=== PATIENT | female | born 1955 | race Asian ===

== ENCOUNTER 2024-03-09 19:10 | Emergency (ER) | payer OTHER, SELFPAY ==
[2024-03-09 19:12] VITALS: BP 159/88
[2024-03-09 19:38] LABS: % Basophils 1.1 % (0-2); % Eosinophils 4.5 % (0-6); % Immature Granulocytes 0.3 % (0-0.5); % Lymphocytes 27.6 % (20.5-51.1); % Monocytes 6.9 % (1.7-9.3); % Neutrophils 59.6 % (42.2-75.2); Absolute Basophils 0.1 10^3/uL (0-0.2); Absolute Eosinophils 0.4 10^3/uL (0-0.7); Absolute Lymphocytes 2.5 10^3/uL (1.2-3.4); Absolute Monocytes 0.6 10^3/uL (0.1-0.6); Absolute Neutrophils 5.5 10^3/uL (1.4-6.5); Hemoglobin 11.8 g/dL (12.0-16.0); Mean Corp Hgb Conc. 32.8 g/dL (33.0-37.0); Mean Corpuscular Hgb 27.9 pg (27.0-31.0); Mean Corpuscular Volume 85.1 fL (81.0-99.0); Nucleated Red Blood Cells % 0 %; Platelet Count 269 10^3/uL (130-400); Red Blood Cell Count 4.23 10^6/uL (4.20-5.40); Red Cell Dist. Width 13.8 % (11.5-14.5); White Blood Cell Count 9.2 10^3/uL (4.8-10.8)
[2024-03-09 19:54] LABS: Urine Albumin Negative (Neg - Trace); Urine Bilirubin Negative (Negative); Urine Glucose Negative (Negative); Urine Ketone Negative (Negative); Urine Leukocyte Trace (Negative); Urine Nitrite Negative (Negative); Urine Occult Blood Negative (Negative); Urine Urobilinogen Negative (Neg - 1+)
[2024-03-09 19:55] LABS: ALT (SGPT) 17 U/L (0-35); AST (SGOT) 27 U/L (14-36); Albumin 4.5 g/dl (3.5-5.0); Alkaline Phosphatase 110 U/L (38-126); Blood Urea Nitrogen 7 mg/dl (7-17); Calcium 9.6 mg/dl (8.4-10.2); Carbon Dioxide 29 mmol/L (22-30); Chloride 102 mmol/L (98-107); Glucose 156 mg/dl (70-99); Lipase 66 U/L (23-300); Potassium 4.3 mmol/L (3.5-5.1); Sodium 143 mmol/L (135-145); Total Bilirubin 0.4 mg/dl (0.2-1.3); Total Protein 7.5 g/dl (6.3-8.2); Urine Character Clear (Clear); Urine Color Yellow; eGFR > 60.00
[2024-03-09 20:03] LABS: Urine Bacteria Few (Negative); Urine Red Blood Cell 0-2 /HPF (0-2)
[2024-03-09 23:07] VITALS: BP 152/75
[2024-03-09 23:08] VITALS: BMI 30.2
--- NOTE | 2024-03-09 23:24 | ED.GENMED ---
History of Present Illness
<JOSAFAT Lambert - Last Filed: 03/10/24 01:41>
General
Chief Complaint: Abdominal Pain
Source: family
Time Seen by Provider: 03/09/24 23:06
History of Present Illness
History of Present Illness:
Patient is a 68 y/o speaking female with PMHx of HTN, HLD, and GERD presenting for left lower abdominal pain x1 day. She presents with her son who is interpreting for the pt. She states that she began to get a sharp pain in her left lower
quadrant around 9am this morning. She states it is a sharp, 6/10 that lasts around 10 minutes and goes away. She states it is occurring every 10-15 minutes. She states nothing provokes it and laying flat helps the symptoms minimally. She has not
taken anything for the symptoms. She denies and prior occurrences in the past. She denies any change in weight, change in bowel habits, nausea, vomiting, back pain, fevers, chills, dysuria. She denies and alcohol or tobacco use. Patient does admit
to a new abdominal mass she noticed 2 months ago. She states she noticed it around her umbilical area. She states it is not painful and has not changed in size. She states she has not been seen for this because it is not causing her any problems.
<Michael Ray DO - Last Filed: 03/10/24 02:03>
General
Source: patient
Exam Limitations: none
Past History
<JOSAFAT Lambert - Last Filed: 03/10/24 01:41>
Past History
ED Past Medical History: GERD, HTN and Hypercholesterolemia
ED Past Surgical History: Cholecystectomy and Gynecological (Hysterectomy)
Social History
Tobacco: Non-smoker
Alcohol: None
Personal:
Living: with family
Phy Exam
<JOSAFAT Lambert - Last Filed: 03/10/24 01:41>
Physical Exam
Physical Exam:
GENERAL: Alert , mildly uncomfortable, in no apparent distress
EYE: pupils equal and reactive. Mild scleral icterus.
Throat: Airway intact, no exudates
NECK: Supple, no significant adenopathy.
CARDIAC: Regular rate and rhythm .
LUNGS: Clear breath sounds bilaterally, no acute respiratory distress, no wheezes/rales/rhonchi
ABDOMEN: Tenderness to palpation in the left lower abdomen. Firm mass palpated inferior to the umbilicus. Abdomen is soft and nondistended. Bowel sounds are normoactive.
NEUROLOGICAL: Alert and oriented, no focal neuro deficits
SKIN: Warm and dry, skin intact.
MUSCULOSKELETAL: No edema, well perfused.
PSYCH: Normal and appropriate interaction.
Course
<Rylan Kumar [facility] - Last Filed: 03/10/24 01:41>
Orders/Labs/Results
Orders:
Orders
03/09/24 19:16
IV Insert/Care/Rem.- Treatment PRN
03/09/24 19:28
Complete Blood Count/With Diff Urgent
Comprehensive Metabolic Panel Urgent
Lipase Urgent
Urinalysis Reflex To Culture Urgent
Date Specimen was Collected: 03/09/24
Time Specimen was Collected: 19:16
Urine Microscopic Reflex Cult Urgent
03/10/24 00:05
CT Abd/pelvis W Iv Cont Urgent
Reason For Exam: Left lower abdominal pain
Abnormal Lab Results
03/09/24
19:28
Hgb 11.8 L g/dL
(12.0-16.0)
Hct 36.0 L %
(37.0-47.0)
MCHC 32.8 L g/dL
(33.0-37.0)
MPV 11.0 H fL
(7.4-10.4)
Glucose 156 H mg/dl
(70-99)
Leukocyte Esterase Rfl Trace A
(Negative)
Urine Bacteria (Reflex) Few A
(Negative)
03/09/24 19:28
03/09/24 19:28
Vital Signs
Initial and Last Documented VS:
Initial Vital Signs
Temp Pulse Resp BP Pulse Ox
98.6 F 77 19 159/88 99
03/09/24 19:12 03/09/24 19:12 03/09/24 19:12 03/09/24 19:12 03/09/24 19:12
Last Documented Vital Signs
Temp Pulse Resp BP Pulse Ox
98.6 F 70 20 112/67 94
03/09/24 19:12 03/10/24 00:31 03/09/24 23:21 03/10/24 01:00 03/10/24 01:00
<Michael Ray, DO - Last Filed: 03/10/24 02:03>
Orders/Labs/Results
Orders:
Orders
03/09/24 19:16
IV Insert/Care/Rem.- Treatment PRN
03/09/24 19:28
Complete Blood Count/With Diff Urgent
Comprehensive Metabolic Panel Urgent
Lipase Urgent
Urinalysis Reflex To Culture Urgent
Date Specimen was Collected: 03/09/24
Time Specimen was Collected: 19:16
Urine Microscopic Reflex Cult Urgent
03/10/24 00:05
CT Abd/pelvis W Iv Cont Urgent
Reason For Exam: Left lower abdominal pain
Abnormal Lab Results
03/09/24
19:28
Hgb 11.8 L g/dL
(12.0-16.0)
Hct 36.0 L %
(37.0-47.0)
MCHC 32.8 L g/dL
(33.0-37.0)
MPV 11.0 H fL
(7.4-10.4)
Glucose 156 H mg/dl
(70-99)
Leukocyte Esterase Rfl Trace A
(Negative)
Urine Bacteria (Reflex) Few A
(Negative)
03/09/24 19:28
03/09/24 19:28
Vital Signs
Initial and Last Documented VS:
Initial Vital Signs
Temp Pulse Resp BP Pulse Ox
98.6 F 77 19 159/88 99
03/09/24 19:12 03/09/24 19:12 03/09/24 19:12 03/09/24 19:12 03/09/24 19:12
Last Documented Vital Signs
Temp Pulse Resp BP Pulse Ox
98.6 F 70 20 112/67 94
03/09/24 19:12 03/10/24 00:31 03/09/24 23:21 03/10/24 01:00 03/10/24 01:00
<JOSAFAT Lambert - Last Filed: 03/10/24 01:41>
MDM/Problems Addressed
Differential Diagnosis Includes:
Differential diagnosis includes but is not limited to diverticulitis, constipation, bowel obstruction, uti.
<JOSAFAT Lambert - Last Filed: 03/10/24 01:41>
*Radiology
Radiology exam reviewed: radiology read reviewed (CT abd/pelvis: Colonic diverticulosis without evidence of diverticulitis. Noninflamed appendix. No evidence of bowel obstruction. No evidence of renal calculus or obstructing renal ureteral calculus.
)
*Pulse Oximetry
Patient hypoxic: no
*EKG
Interpreted by ED Provider?: NA
*Road Manager Interpretation
Rate: Road Manager- N/A
*Critical Care Note
Total Time (30-74mins, 75-104mins- exclusive of procedures): Not Applicable
<Michael Ray DO - Last Filed: 03/10/24 02:03>
Update Note
Update Note:
CT A/P
IMPRESSION:
Colonic diverticulosis without evidence of diverticulitis. Noninflamed appendix. No evidence of bowel obstruction.
No evidence of renal calculus or obstructing ureteral calculus.
Additional findings: Post cholecystectomy. Small hiatal hernia. Vascular calcifications. DJD. Probable left renal cystic focus. Post hysterectomy. Fat-containing umbilical and infraumbilical hernias.
Report electronically transmitted @12:55 AM EST
ED Attending Note
<JOSAFAT Lambert - Last Filed: 03/10/24 01:41>
-
Portions of this chart may have been created with voice recognition software.� Occasional wrong word or��sound alike� substitutions may have occurred due to the inherent limitations of voice recognition software.
<Michael Ray DO - Last Filed: 03/10/24 02:03>
ED Attending Note
Patient seen and examined by attending physician: Yes
I performed the substantive portion of visit, reviewed & personally made and approve the management plan that is documented in note by myself or DREW.: Yes
ED Attending Note:
Pleasant 68-year-old female presents with sharp left lower quadrant abdominal pain that is been present for the last day. She states that pain began around 9 AM this morning and is progressively worsening. She states that it has been waxing and
waning and intermittent in nature. She has not taken anything for the symptoms. She states that she has had similar pain but less severe in the past. Patient does have a new abdominal mass that she noticed 2 months ago around her umbilical area.
She reports that it is not painful. Patient was seen in conjunction with the PA student. I have reviewed and agree with the history and treatment plan presented. On my independent physical exam, patient is awake, alert, and oriented x3, [place]
speaking with translation provided by her son. Heart is regular rate rhythm. Lungs are clear to auscultation bilaterally with no wheezes rales or rhonchi present. Abdomen is soft with left lower quadrant tenderness to palpation. There is a small
palpable mass periumbilically. Skin is warm and dry. Moves all 4 extremities.
Discharge Plan
Departure
Patient Disposition: Home (Routine Discharge)
Date of Disposition: 03/10/24
Time of Disposition: 02:01
Patient with high blood pressure during this ER visit?: No
Condition: Good
Discharge Problem:
Abdominal pain, Acute UTI
Instructions: Abdominal Pain, Urinary tract infections in adults
Prescriptions:
No Action
cyanocobalamin (vitamin B-12) 1,000 MCG tablet
1,000 mcg PO DAILY
aspirin 81 MG tablet,delayed release (DR/EC)
81 mg PO DAILY
metoprolol tartrate 12.5 MG tablet
12.5 mg PO BID
omeprazole 20 MG tablet,delayed release (DR/EC)
40 mg PO DAILY
lovastatin 10 mg Tablet
10 mg PO DAILY
Referrals:
UNKNOWN - PT DOES,NOT KNOW [Unknown Provider] -
Activity Restrictions/Additional Instructions:
It was a pleasure meeting you and taking part in your care. We hope for your continued healing and wellness.
Please read discharge instructions in their entirety. However, they are for general education and may not describe your exact diagnosis at discharge. Information on your ER visit and medical conditions were discussed with you along with appropriate
follow up information...
If indicated, please take your medications as instructed and indicated on discharge paperwork.
Please schedule a follow up appointment as directed. Call to schedule an appointment
Please return to the emergency department with ANY change in, persisting, or worsening of symptoms. If any of your symptoms do not improve, or persist, or become more severe within 6-12 hours, please return to the emergency department for further
care.
Please return to the emergency department if you develop a headache, neck pain/stiffness, fever greater than 100.4F, chest pain, shortness of breath, persistent nausea, vomiting, slurred speech, difficulty walking, numbness/tingling, weakness, signs
of infection or any other symptoms that are worrisome to you.
If you have any questions or concerns please do not hesitate to call the Hospital at or E-mail me directly at [email or web address]
Interventions
Interventions:
*Risk Screen - Suicide Last Done: 03/09/24 19:12
*General Assessment Last Done: 03/09/24 19:12
*Neglect/Abuse Screening Last Done: 03/09/24 19:12
XY-Lqsxvs-Olpqgyfplv Assessment Last Done: 03/09/24 23:04
Discharge Date and Time
Print Language: POLISH
[2024-03-10] VITALS: BP 137/71
[2024-03-10 01:00] VITALS: BP 112/67
[2024-03-10 02:00] VITALS: BP 121/65
[2024-03-10] MEDS: MONUROL 3 GM PO (02:10)
== END 2024-03-10 02:32 | disposition home or self-care (01) ==
LOC: EMR 19:10
PROVIDERS: Student in an Organized Health Care Education/Training Program; EMERGENCY PHYSICIAN Student in an Organized Health Care Education/Training Program; FAMILY PHYSICIAN Internal Medicine
DX: N39.0 Urinary tract infection, site not specified (principal); I10 Essential (primary) hypertension; E78.00 Pure hypercholesterolemia, unspecified; K21.9 Gastro-esophageal reflux disease without esophagitis; Z90.49 Acquired absence of other specified parts of digestive tract; Z90.710 Acquired absence of both cervix and uterus
CPT/HCPCS: 99284; 74177; 80053; 81003; 81015; 83690; 85025; Q9967